=== PATIENT | male | born 1955 | race Caucasian/White ===

== ENCOUNTER 2018-05-21 08:35 | Observation (INO) | payer OTHER ==
[2018-05-21 08:52] LABS: ADD MAN DIFF? NO
[2018-05-21 08:54] LABS: WHITE BLOOD COUNT 7.6 10^3/ul (4.8-10.8)
[2018-05-21 08:54] LABS: BASOPHILS % 0.5 % (0.0-2.0); EOSINOPHILS # 0.2 10^3/ul (0.0-0.5); EOSINOPHILS % 2.4 % (0.0-7.0); HEMATOCRIT 47.4 % (42.0-52.0); HEMOGLOBIN 16.3 g/dl (14.0-18.0); LYMPHOCYTES % 26.7 % (15.0-51.0); MEAN CORPUSCULAR HEMOGLOBIN 30.7 pg (29.0-33.0); MEAN CORPUSCULAR HGB CONC 34.4 g/dl (32.0-37.0); MEAN CORPUSCULAR VOLUME 89.3 fl (82.0-101.0); MEAN PLATELET VOLUME 9.2 fl (7.4-10.4); MONOCYTE # 0.5 10^3/ul (0.3-0.9); MONOCYTES % 6.4 % (0.0-11.0); NEUTROPHIL # 4.8 10^3/ul (1.6-7.5); NEUTROPHILS % 63.6 % (39.0-77.0); PLATELET COUNT 262 10^3/UL (140-415); RED BLOOD COUNT 5.31 10^6/ul (4.70-6.10)
[2018-05-21] MEDS: ASPIRIN 81 MG TAB PO (08:55)
[2018-05-21] MEDS: NITROGLYCERIN 2% 1 GM OINT PKT TD (08:57)
[2018-05-21 09:11] LABS: ANION GAP 12 (5-13); BLOOD UREA NITROGEN 8 mg/dl (7-20); CALCIUM 9.2 mg/dl (8.4-10.2); CARBON DIOXIDE 25 mmol/L (21-31); CHLORIDE 104 mmol/L (97-110); CREATININE 0.89 mg/dl (0.61-1.24); Estimated GFR > 60 mL/min (>60); GLUCOSE 135 mg/dl (70-220); SODIUM 141 mmol/L (135-144)
[2018-05-21 09:23] LABS: TROPONIN-I < 0.012 ng/ml (0.000-0.120)
[2018-05-21] MEDS ORDERED: ACETAMINOPHEN 325 MG TAB PO (10:00)
[2018-05-21] MEDS ORDERED: ONDANSETRON 4 MG INJ IV ×2 (10:00→14:00)
[2018-05-21] MEDS ORDERED: NACL 0.9% 3 ML SYG IV (14:00)
[2018-05-21] MEDS ORDERED: DOCUSATE SODIUM 100 MG CAP PO (14:00)
[2018-05-21 14:21] LABS: CREATINE KINASE 63 IU/L (23-200)
[2018-05-21 14:29] LABS: CREATINE KINASE 49 IU/L (23-200)
[2018-05-21 14:31] LABS: CK-MB 1.01 ng/ml (0.0-2.4)
[2018-05-21 14:42] LABS: CK INDEX 1.5; CK-MB 0.73 ng/ml (0.0-2.4); TROPONIN-I < 0.012 ng/ml (0.000-0.120)
[2018-05-21] MEDS: CLOPIDOGREL 75 MG TAB PO (15:22)
[2018-05-21] MEDS: ACETAMINOPHEN 325 MG TAB PO (15:25)
[2018-05-21] MEDS: ATORVASTATIN 40 MG TAB PO (20:53)
[2018-05-21] MEDS ORDERED: ATORVASTATIN 20 MG TAB PO (21:00)
[2018-05-21 21:29] LABS: CREATINE KINASE 50 IU/L (23-200)
[2018-05-21 21:40] LABS: CK INDEX 1.2
[2018-05-21 21:41] LABS: TROPONIN-I < 0.012 ng/ml (0.000-0.120)
[2018-05-21 21:45] LABS: CK-MB 0.61 ng/ml (0.0-2.4)
[2018-05-22] MEDS: LEVOTHYROXINE 75 MCG TAB PO (06:04)
[2018-05-22] MEDS: PANTOPRAZOLE (EC) 40 MG TAB PO (06:04)
[2018-05-22 06:25] LABS: CHOLESTEROL 156 mg/dl (100-200)
[2018-05-22 06:25] LABS: HDL CHOLESTEROL 31 mg/dl (30-78); LDL CHOLESTEROL,CALCULATED 82 mg/dl; TRIGLYCERIDES 213 mg/dl (0-149)
[2018-05-22] MEDS: BENAZEPRIL 10 MG TAB PO (08:21)
[2018-05-22] MEDS: CLOPIDOGREL 75 MG TAB PO (08:21)
[2018-05-22] MEDS: ASPIRIN 81 MG TAB PO (08:21)
[2018-05-22] MEDS: METOPROLOL (XL) 50 MG TAB PO (08:22)
[2018-05-22 09:49] LABS: HEMOGLOBIN A1C 5.4 % (0-5.9)
[2018-05-22] MEDS: REGADENOSON 0.4 MG/5 ML SYG (10:37)
[2018-05-22] MEDS: ISOSORBIDE MONONITRATE(SR)30 MG TAB PO (11:57)
== END 2018-05-22 16:04 | disposition home or self-care (01) ==
LOC: E/R 08:35 → 6WM 10:01
DX: R07.9 Chest pain, unspecified (principal); I10 Essential (primary) hypertension; E78.5 Hyperlipidemia, unspecified; I25.10 Atherosclerotic heart disease of native coronary artery without angina pectoris; Z95.5 Presence of coronary angioplasty implant and graft; E03.9 Hypothyroidism, unspecified; K62.5 Hemorrhage of anus and rectum
CPT/HCPCS: 36415; 71045; 78452; 80048; 80061; 82550; 82553; 83036; 84484; 85025; 90686; 93005; 93017; 93306; 99285-25; G0378